=== PATIENT | male | born 1975 | race Caucasian/White ===

== ENCOUNTER 2023-05-25 00:42 | Emergency (ER) | payer OTHER ==
[~2023-05-25] VITALS: Ht 185.4 cm; Wt 90.7 kg
[2023-05-25] MEDS ORDERED: 0.9%NACL 1000ML 1,000 ML IV ONE (02:00)
[2023-05-25] MEDS ORDERED: IPRATROPIUM/ALBUTEROL SULFATE 3 ML SOLUTION IH ONE ×4 (02:00→03:00)
[2023-05-25] MEDS ORDERED: SOLU-MEDROL 125MG VIAL IVP ONE (02:00)
[2023-05-25 02:14] VITALS: PULSE 71
[2023-05-25 02:18] LABS: BASOPHILS # (AUTO) 0.02 K/uL (0.00-0.20); BASOPHILS % (AUTO) 0.2 % (0.0-5.0); HEMATOCRIT 43.2 % (42-54); LYMPHOCYTES # (AUTO) 0.7 K/uL (1.0-4.8); LYMPHOCYTES % (AUTO) 6.7 % (21.0-51.0); MEAN CORPUSCULAR HEMOGLOBIN 29.7 pg (27.0-33.0); MEAN CORPUSCULAR HGB CONC 34.5 g/dL (32.0-36.0); MEAN CORPUSCULAR VOLUME 86.1 fL (79-99); MONOCYTES # (AUTO) 0.6 K/uL (0.1-1.0); MONOCYTES % (AUTO) 5.8 % (3.0-13.0); NEUTROPHILS # (AUTO) 9.6 K/uL (1.8-7.7); NEUTROPHILS % (AUTO) 86.4 % (40.0-77.0); PLATELET COUNT (AUTO) 357 K/uL (130-400); RED BLOOD CELL COUNT(AUTO) 5.02 MIL/uL (4.50-6.20); RED CELL DISTRIBUTION WIDTH 12.8 % (11.0-15.5); WHITE BLOOD COUNT (AUTO) 11.1 K/uL (4.8-10.8)
[2023-05-25 02:35] LABS: INR < 0.93 (0.85-1.15); PROTHROMBIN TIME 10.4 SEC (9.6-11.6)
[2023-05-25 02:36] LABS: PARTIAL THROMBOPLASTIN TIME 29.2 SEC (26.3-35.5)
[2023-05-25 02:40] LABS: CREATININE 1.1 mg/dL (0.5-1.5); POTASSIUM 3.7 mmol/L (3.5-5.1)
[2023-05-25 02:45] LABS: ALBUMIN 4.1 g/dL (3.5-5.0); BILIRUBIN,TOTAL 0.5 mg/dL (0.2-1.0); TOTAL PROTEIN, SERUM 7.2 g/dL (6.0-8.3)
[2023-05-25 03:20] VITALS: PULSE 100; RESP 18
[2023-05-25 03:24] LABS: APPEARANCE,URINE CLEAR (CLEAR); BILIRUBIN,URINE NEGATIVE (NEGATIVE); COLOR,URINE LIGHT-YELLOW (YELLOW); GLUCOSE, URINE (UA) NEGATIVE (NEGATIVE); KETONES,URINE 10 mg/dL (NEGATIVE); LEUKOCYTE ESTERASE ,URINE NEGATIVE Leu/uL (NEGATIVE); NITRATE,URINE NEGATIVE (NEGATIVE); OCCULT BLOOD,URINE NEGATIVE (NEGATIVE); PROTEIN,URINE 20 mg/dL (NEGATIVE)
[2023-05-25 03:29] LABS: ADD UA MICROSCOPIC NO
[2023-05-25] MEDS ORDERED: CEFU500T67 PO (03:36)
[2023-05-25] MEDS ORDERED: PRED20TA3 PO (03:36)
[2023-05-25] MEDS ORDERED: ALBU90AE2 IH (03:36)
[2023-05-25 03:38] LABS: SARS-CoV-2, RNA, NAAT POSITIVE SARS CoV-2 (NEGATIVE)
[2023-05-25 03:41] LABS: INFLUENZA TYPE A Negative For Type A (NEGATIVE); INFLUENZA TYPE B Negative For Type B (NEGATIVE)
[2023-05-25 04:49] VITALS: BP 144/62; PULSE 92; RESP 18; O2SAT 99
== END 2023-05-25 04:51 | disposition home or self-care (01) ==
LOC: EDH 00:42
DX: J45.901 Unspecified asthma with (acute) exacerbation (principal); I10 Essential (primary) hypertension; F41.9 Anxiety disorder, unspecified; F32.A Depression, unspecified; Z98.890 Other specified postprocedural states; Z88.8 Allergy status to other drugs, medicaments and biological substances; Z20.822 Contact with and (suspected) exposure to COVID-19
CPT/HCPCS: 99283; 96374; 71045; 96361; 87635; 82550; 84484; 80053; 85025; 85610; 85730; 87040 ×2; 87088; 87804 ×2; 83605; 81003; 36415; 94640 ×2; C9803; J2930